=== PATIENT | female | born 1945 | race Caucasian/White ===

== ENCOUNTER → 2020-03-07 | Outpatient (CLI) | payer MEDICARE, OTHER ==
[2020-03-08 15:11] LABS: Microalbumin, Urine Quant. <5.000 mg/L (0.000-20.000); Protein, Urine Quantitative <5.0 mg/dL (0.0-11.9)
== END | disposition home or self-care (01) ==
LOC: LAB EV 11:55 → LAB SHORT 11:55
PROVIDERS: Physician Assistant
DX: N18.3 Chronic kidney disease, stage 3 (moderate) (principal); D63.1 Anemia in chronic kidney disease; R73.09 Other abnormal glucose; N25.81 Secondary hyperparathyroidism of renal origin; E55.9 Vitamin D deficiency, unspecified; E78.00 Pure hypercholesterolemia, unspecified; D51.8 Other vitamin B12 deficiency anemias; D52.8 Other folate deficiency anemias; D50.9 Iron deficiency anemia, unspecified; R76.9 Abnormal immunological finding in serum, unspecified; R94.5 Abnormal results of liver function studies; R94.6 Abnormal results of thyroid function studies
CPT/HCPCS: 81050; 82043; 82570; 84156

== ENCOUNTER → 2020-07-24 | Outpatient (CLI) | payer MEDICARE, OTHER ==
[2020-07-25 16:55] LABS: Creatinine Urine 38.2 mg/dL (27.00-270.00); Protein, Urine Quantitative 5.7 mg/dL (0.0-11.9)
[2020-07-25 16:57] LABS: Microalbumin, Urine Quant. 12.5 mg/L (0.000-20.000)
== END | disposition home or self-care (01) ==
LOC: LAB 12:00 → LAB SHORT 12:00 → LAB FUT 07-21 13:55
PROVIDERS: Internal Medicine Nephrology
DX: N18.30 Chronic kidney disease, stage 3 unspecified (principal); D63.1 Anemia in chronic kidney disease; N25.81 Secondary hyperparathyroidism of renal origin; E55.9 Vitamin D deficiency, unspecified; E78.00 Pure hypercholesterolemia, unspecified; R76.9 Abnormal immunological finding in serum, unspecified; R94.5 Abnormal results of liver function studies; R94.6 Abnormal results of thyroid function studies
CPT/HCPCS: 81050; 82043; 82570; 84156

== ENCOUNTER 2021-02-12 11:50 | Day surgery (SDC) | payer MEDICARE, OTHER, SELFPAY ==
[~2021-02-12] VITALS: Ht 154.9 cm; Wt 90.9 kg
[~2021-02-12 11:50] MED LIST: AMLO5 PO; Acetaminophen650 M1 PO; Aspir 8181 MG PO; BUME2 PO; DOCU100 PO; FERROUS SULFAT325 M3 PO; HYDRA50 PO; METOPROLOL SUCC25 MG PO; POTCHL20ER PO; PROLIA60 MG/1 ML SC; Prozac40 MG PO; TRAZ50 PO
== END 2021-02-12 14:15 | disposition home or self-care (01) ==
LOC: ORSCSDS 11:50
PROVIDERS: Internal Medicine Gastroenterology
PROC: 0DB68ZX Excision of Stomach, Via Natural or Artificial Opening Endoscopic, Diagnostic (ICD-10-PCS; principal; 2021-02-12 12:00)
PROC: 0DB98ZX Excision of Duodenum, Via Natural or Artificial Opening Endoscopic, Diagnostic (ICD-10-PCS; principal; 2021-02-12 12:00)
PROC: 0DJD8ZZ Inspection of Lower Intestinal Tract, Via Natural or Artificial Opening Endoscopic (ICD-10-PCS; principal; 2021-02-12 12:00)
DX: D50.9 Iron deficiency anemia, unspecified (principal); K29.80 Duodenitis without bleeding; K20.90 Esophagitis, unspecified without bleeding; K57.30 Diverticulosis of large intestine without perforation or abscess without bleeding; K64.4 Residual hemorrhoidal skin tags; K64.8 Other hemorrhoids; R19.5 Other fecal abnormalities; Z86.010 Personal history of colon polyps; I25.10 Atherosclerotic heart disease of native coronary artery without angina pectoris; I12.9 Hypertensive chronic kidney disease with stage 1 through stage 4 chronic kidney disease, or unspecified chronic kidney disease; N18.30 Chronic kidney disease, stage 3 unspecified; Z87.891 Personal history of nicotine dependence; Z79.82 Long term (current) use of aspirin; Z79.899 Other long term (current) drug therapy
CPT/HCPCS: 88305; 88341; 88342; J2704; J7120

== ENCOUNTER 2021-12-11 09:48 | Day surgery (SDC) | payer MEDICARE, OTHER ==
[~2021-12-11] VITALS: Ht 152.4 cm; Wt 96.8 kg
== END 2021-12-11 13:15 | disposition home or self-care (01) ==
LOC: ORSCSDS 09:48
PROVIDERS: Student in an Organized Health Care Education/Training Program
PROC: 0DB78ZX Excision of Stomach, Pylorus, Via Natural or Artificial Opening Endoscopic, Diagnostic (ICD-10-PCS; principal; 2021-12-11 11:30)
DX: K21.9 Gastro-esophageal reflux disease without esophagitis (principal); K31.9 Disease of stomach and duodenum, unspecified; K44.9 Diaphragmatic hernia without obstruction or gangrene; I25.10 Atherosclerotic heart disease of native coronary artery without angina pectoris; Z87.891 Personal history of nicotine dependence; E66.01 Morbid (severe) obesity due to excess calories; Z68.41 Body mass index [BMI] 40.0-44.9, adult; I25.2 Old myocardial infarction; Z85.3 Personal history of malignant neoplasm of breast; Z79.899 Other long term (current) drug therapy; Z79.82 Long term (current) use of aspirin; I12.9 Hypertensive chronic kidney disease with stage 1 through stage 4 chronic kidney disease, or unspecified chronic kidney disease
CPT/HCPCS: 88305; 88342; J2405; J2704; J7120

== ENCOUNTER → 2022-10-24 | Outpatient (CLI) | payer MEDICARE ==
[2022-10-25 09:34] LABS: Candida species (DNA Probe) Negative (NEGATIVE); G. vaginalis (DNA Probe) Positive (NEGATIVE); T. vaginalis (DNA Probe) Negative (NEGATIVE)
== END | disposition home or self-care (01) ==
LOC: LAB SHORT 10:50
PROVIDERS: Physician Assistant
DX: N89.8 Other specified noninflammatory disorders of vagina (principal)
CPT/HCPCS: 87480; 87510; 87660

== ENCOUNTER 2023-08-01 06:21 | Day surgery (SDC) | payer OTHER ==
[2023-08-01] VITALS (8 sets, daily range): BP systolic 129–181; BP diastolic 61–97
[~2023-08-01] VITALS: Ht 152.4 cm; Wt 72.3 kg
[2023-08-01] MEDS ORDERED: ALPR.25 PO (06:59)
[2023-08-01] MEDS ORDERED: REXULTI0.5 MG PO (07:00)
[2023-08-01] MEDS ORDERED: CITALOPRAM HBR10 MG PO (07:01)
[2023-08-01] MEDS ORDERED: FAMO20 PO (07:03)
[2023-08-01] MEDS ORDERED: LOSA50 PO (07:04)
[2023-08-01] MEDS ORDERED: TOPI100 (07:06)
[2023-08-01] MEDS ORDERED: SENNA LAXATIVE8.6 MG PO (07:06)
[2023-08-01] MEDS ORDERED: TOPI100 PO (07:08)
[2023-08-01] MEDS ORDERED: DOCU100 PO (07:16)
--- NOTE | 2023-08-01 12:24 | NUR ---
10CC AIR REMOVED FROM R WRIST TR BAND. -BLEEDING OR SWELLING.
--- NOTE | 2023-08-01 12:55 | NUR ---
R WRIST TR BAND REMOVED AND CLOTH DOT DRSG PLACED. R WRIST SPLINT REAPPLIED. IV REMOVED. PT AND DAUGHTER VERBALIZED UNDERSTANDING OF WRITTEN AND VERBAL D/C INST. PT TAKEN OUT OF THE HRT CENTER VIA W/C.
== END 2023-08-01 13:00 | disposition home or self-care (01) ==
LOC: MHTC 06:21
DX: I35.0 Nonrheumatic aortic (valve) stenosis (principal); I25.118 Atherosclerotic heart disease of native coronary artery with other forms of angina pectoris; I12.9 Hypertensive chronic kidney disease with stage 1 through stage 4 chronic kidney disease, or unspecified chronic kidney disease; N18.30 Chronic kidney disease, stage 3 unspecified; F32.9 Major depressive disorder, single episode, unspecified; Z79.899 Other long term (current) drug therapy; Z88.5 Allergy status to narcotic agent; Z88.8 Allergy status to other drugs, medicaments and biological substances
CPT/HCPCS: 76937; 93458; 99152; 99153; A9270; C1769; C1887; C1894; J1644; J2250; J3010; J7030; J7040; J7050; Q9967

== ENCOUNTER → 2023-08-10 | Outpatient (CLI) | payer OTHER ==
[~2023-08-10] MED LIST changes: +ALPR.25 PO; +CITALOPRAM HBR10 MG PO; +FAMO20 PO; +LOSA50 PO; +REXULTI0.5 MG PO; +SENNA LAXATIVE8.6 MG PO; +TOPI100; +TOPI100 PO
[2023-08-11 15:51] LABS: Sodium, Urine 33 mmol/L (20-110)
[2023-08-11 15:57] LABS: Protein, Urine Quantitative <5.0 mg/dL (0.0-11.9)
== END ==
LOC: LAB SHORT 05:59 → LAB 05:59
PROVIDERS: Internal Medicine Nephrology
DX: N18.30 Chronic kidney disease, stage 3 unspecified (principal); D63.1 Anemia in chronic kidney disease; N25.81 Secondary hyperparathyroidism of renal origin; E55.9 Vitamin D deficiency, unspecified; E78.00 Pure hypercholesterolemia, unspecified; R76.9 Abnormal immunological finding in serum, unspecified; R94.5 Abnormal results of liver function studies; R94.6 Abnormal results of thyroid function studies
CPT/HCPCS: 82043; 84156; 84300

== ENCOUNTER → 2024-08-05 | Outpatient (CLI) | payer OTHER ==
[~2024-08-05] MED LIST changes: +ONDA4ODT MM
[2024-08-05 13:13] LABS: Bun/Creatinine Ratio 29.3 (12.0-20.0); Calcium, Blood 7.2 mg/dL (8.5-10.1); Creatinine, Blood 2.08 mg/dL (0.40-1.00); Magnesium, Blood 3.1 mg/dL (1.6-2.4); Potassium, Blood 4.5 mmol/L (3.5-5.5)
== END | disposition home or self-care (01) ==
LOC: LAB 12:51 → LAB SHORT 12:51
PROVIDERS: Chiropractor
DX: N18.4 Chronic kidney disease, stage 4 (severe) (principal)
CPT/HCPCS: 80048; 83735

== ENCOUNTER → 2024-08-06 | Outpatient (CLI) | payer OTHER ==
[2024-08-06 14:01] LABS: Bun/Creatinine Ratio 29.5 (12.0-20.0); Calcium, Blood 7.5 mg/dL (8.5-10.1); Creatinine, Blood 2.24 mg/dL (0.40-1.00); Magnesium, Blood 2.8 mg/dL (1.6-2.4)
== END | disposition home or self-care (01) ==
LOC: LAB SHORT 13:52 → LAB 13:52
PROVIDERS: Chiropractor
DX: N18.4 Chronic kidney disease, stage 4 (severe) (principal); E83.41 Hypermagnesemia
CPT/HCPCS: 80048; 83735

== ENCOUNTER → 2024-09-02 | Outpatient (CLI) | payer OTHER ==
[2024-09-02 13:38] LABS: Protein, Urine Quantitative 5.3 mg/dL (0.0-11.9)
[2024-09-02 14:00] LABS: Microalbumin, Urine Quant. 6.02 mg/L (0.000-20.000)
== END | disposition home or self-care (01) ==
LOC: LAB SHORT 11:00 → LAB 11:00
PROVIDERS: Internal Medicine Nephrology
DX: N18.30 Chronic kidney disease, stage 3 unspecified (principal); D75.1 Secondary polycythemia; N25.81 Secondary hyperparathyroidism of renal origin; E55.9 Vitamin D deficiency, unspecified; E27.0 Other adrenocortical overactivity; R76.9 Abnormal immunological finding in serum, unspecified; R94.5 Abnormal results of liver function studies; R94.6 Abnormal results of thyroid function studies
CPT/HCPCS: 81050; 82043; 82570; 84156

== ENCOUNTER 2024-09-17 09:21 | Emergency (ER) | payer OTHER ==
[~2024-09-17] VITALS: Ht 154.9 cm; Wt 83.0 kg
[2024-09-17] MEDS ORDERED: Lactated Ringer's 1,000 ML IV SCH (10:35)
[2024-09-17 10:52] LABS: BASOPHILS ABSOLUTE AUTO 0.05 K/mm3 (0.00-0.23); BASOPHILS PERCENT AUTO 0 % (0-2); EOSINOPHILS ABSOLUTE AUTO 0.08 K/mm3 (0.00-0.68); EOSINOPHILS PERCENT AUTO 1 % (0-6); Hematocrit 31.1 % (33.0-51.0); Hemoglobin 10.5 g/dL (11.5-16.0); IMMATURE GRAN ABSOLUTE AUTO 0.07 K/mm3 (0.00-0.10); IMMATURE GRAN PERCENT AUTO 0 % (0-1); LYMPHOCYTES PERCENT AUTO 7 % (21-46); MONOCYTES PERCENT AUTO 5 % (4-13); Mean Corpuscular HGB 30.2 pg (26.0-34.0); Mean Corpuscular HGB Conc 33.8 g/dL (31.5-36.5); Mean Corpuscular Volume 89 fL (80-100); Mean Platelet Volume 9.7 fL (9.1-12.4); NEUTROPHILS ABSOLUTE AUTO 14.45 K/mm3 (1.96-9.15); NEUTROPHILS PERCENT AUTO 86 % (41-73); Platelet Count 198 K/mm3 (150-400); RDW Standard Deviation 39.2 fL (35.1-46.3); Red Blood Cell Count 3.48 M/mm3 (3.80-5.20); White Blood Cell Count 16.75 K/mm3 (4.00-11.30)
[2024-09-17 12:11] LABS: Albumin, Blood 3.6 g/dL (3.4-5.0); Albumin/Globulin Ratio 0.9 (0.8-1.8); Bilirubin, Total 0.5 mg/dL (0.1-1.0); Calcium, Blood 8.2 mg/dL (8.5-10.1); Creatinine, Blood 3.36 mg/dL (0.40-1.00); Globulin, Blood 3.9 g/dL (2.2-4.0); Potassium, Blood 2.5 mmol/L (3.5-5.5); Total Protein, Blood 7.5 g/dL (6.4-8.2)
[2024-09-17] MEDS ORDERED: Acetaminophen 500 MG Tab PO ONE (12:20)
[2024-09-17 12:22] LABS: Bun/Creatinine Ratio 53.9 (12.0-20.0)
[2024-09-17 12:31] LABS: Source, Urine Clean Catch
[2024-09-17 12:31] LABS: Influenza A, PCR NEGATIVE (NEGATIVE); Influenza B, PCR NEGATIVE (NEGATIVE); Resp Syncytial Virus, PCR NEGATIVE (NEGATIVE); SARS-Cov-2 (COVID-19) PCR, MMC NEGATIVE (NEGATIVE)
[2024-09-17 12:55] LABS: Appearance, Urine Clear (Clear); Bilirubin, Urine Neg (Neg); Blood, Urine Neg (Neg); Color, Urine Yellow (P-Yellow); Glucose Qualitative, Urine Neg (Neg); Ketones, Urine Neg (Neg); Leukocyte Esterase, Urine Neg (Neg); Nitrite, Urine Neg (Neg); Protein, Urine Neg (Neg); Urobilinogen, Urine NORM (Normal)
[2024-09-17] MEDS ORDERED: ARANESP40 MCG/0.1 SC (14:40)
[2024-09-17] MEDS ORDERED: CALC.25 PO (14:40)
[2024-09-17] MEDS ORDERED: METO5 PO (14:40)
[2024-09-17] MEDS ORDERED: Amlodipine Bes2.5 MG (14:40)
[2024-09-17] MEDS ORDERED: FAMO20 (14:40)
[2024-09-17] MEDS ORDERED: ACET500 (14:41)
[2024-09-17] MEDS ORDERED: PRAM.125 PO (14:41)
[2024-09-17] MEDS ORDERED: Seroquel Xr50 MG PO (14:41)
[2024-09-17] MEDS ORDERED: OXYC5 PO (14:41)
[2024-09-17] MEDS ORDERED: METO50ER PO (14:42)
[2024-09-17] MEDS ORDERED: NS 1,000 ML IV SCH (14:55)
[2024-09-17] MEDS ORDERED: Potassium Chloride 20 MEQ/15 ML UDC PO ONE (15:20)
[2024-09-17] MEDS ORDERED: Potassium Chl 20MEQ/Water100ML 100 ML IV ONE (15:20)
[2024-09-17] MEDS ORDERED: Potassium Chloride 20 MEQ in NS 90 ML IV ONE (15:25)
[2024-09-17 18:00] VITALS: BP 116/54
== END 2024-09-17 18:16 | disposition home or self-care (01) ==
LOC: ER 09:21
PROVIDERS: Student in an Organized Health Care Education/Training Program
DX: K52.9 Noninfective gastroenteritis and colitis, unspecified (principal); E87.1 Hypo-osmolality and hyponatremia; E87.6 Hypokalemia; N18.4 Chronic kidney disease, stage 4 (severe); Z88.5 Allergy status to narcotic agent; Z79.899 Other long term (current) drug therapy; Z87.891 Personal history of nicotine dependence
CPT/HCPCS: 0241U; 74176; 80053; 81003; 83605; 83690; 85025; 93005; 93010; 96361; 96365; 96366; 99284-25; A9270; J3480; J7030; J7120

== ENCOUNTER 2024-10-01 07:20 | Day surgery (SDC) | payer OTHER ==
[~2024-10-01] VITALS: Ht 154.9 cm; Wt 82.1 kg
[~2024-10-01 07:20] MED LIST changes: +ACET500 PO; +ALPR.25; +ARANESP40 MCG/0.1 SC; +Amlodipine Bes2.5 MG; +CALC.25 PO; +FAMO20; +Flonase 0.05% N16 GM; +HYDRA25 PO; -HYDRA50 PO; +MELATONIN5 M1 PO; +METO5 PO; +METO50ER PO; +OXYC5 PO; +POTA20LUD PO; +PRAMIPEXOLE DI0.5 M1 PO; +Seroquel Xr50 MG PO; -TRAZ50 PO
[2024-10-01] MEDS ORDERED: Heparin Sodium 1000 Units/ML 10ML MDV ONE (07:21)
[2024-10-01] MEDS ORDERED: NS 250 ML IV ONE (07:22)
[2024-10-01 07:41] VITALS: BP 112/61
[2024-10-01] MEDS ORDERED: Midazolam HCl 1MG / ML 2ML Vial ONE (07:43)
[2024-10-01] MEDS ORDERED: FentaNYL Citrate 50 MCG/ML 2 ML Injection ONE (07:44)
[2024-10-01] MEDS ORDERED: NS 1,000 ML IV ONE (07:44)
[2024-10-01] MEDS ORDERED: Heparin Sodium 10,000 Units/ML 1ML MDV ONE (08:20)
[2024-10-01 08:36] VITALS: BP 103/65
--- NOTE | 2024-10-01 08:41 | NUR ---
PROCEDURE COMPLETED, HEP LOCKED WITH 20,000 UNITS ARTERIAL PORT, 21,000 UNITS VENOUS PORT, TOLERATED WELL PROCEDURE, REPORT GIVEN AND VSS, D/C PENDING, FAMILY AT BEDSIDE, NO ACUTE CONCERNS OTHERWISE.
[2024-10-01 08:45] VITALS: BP 104/56
--- NOTE | 2024-10-01 08:58 | NUR ---
procedure site soft and non-tender per pt. no bleeding/hematoma noted.
[2024-10-01 09:00] VITALS: BP 106/67
--- NOTE | 2024-10-01 09:15 | NUR ---
pt and family given dc instructions and verbalized understanding. iv out. site soft and non-tender epr pt. no bleeding/hematoma noted. pt chnaged and taken to [facility] via [facility]. family to take pt to dr daniel's office for follow-up.
[2024-10-01] MEDS ORDERED: METO5 PO ×2 (19:30)
[2024-10-01] MEDS ORDERED: ELIQUIS5 M2 PO ×2 (19:33)
== END 2024-10-01 09:44 | disposition home or self-care (01) ==
LOC: MHTC 07:20
DX: I12.0 Hypertensive chronic kidney disease with stage 5 chronic kidney disease or end stage renal disease (principal); N18.6 End stage renal disease; D63.1 Anemia in chronic kidney disease; E87.1 Hypo-osmolality and hyponatremia; Z87.891 Personal history of nicotine dependence; Z88.1 Allergy status to other antibiotic agents; Z88.2 Allergy status to sulfonamides; Z88.5 Allergy status to narcotic agent; Z79.82 Long term (current) use of aspirin; Z79.899 Other long term (current) drug therapy
CPT/HCPCS: 36415; 36558; 76937; 77001; 80069; 86803; 87340; 99152; C1750; C1769; C1894; J1644; J2250; J3010; J7030; J7050

== ENCOUNTER 2024-10-01 14:21 | Inpatient (IN) | payer OTHER ==
[~2024-10-01] VITALS: Ht 154.9 cm; Wt 80.3 kg
[2024-10-01 14:51] LABS: BASOPHILS ABSOLUTE AUTO 0.06 K/mm3 (0.00-0.23); BASOPHILS PERCENT AUTO 1 % (0-2); EOSINOPHILS ABSOLUTE AUTO 0.24 K/mm3 (0.00-0.68); EOSINOPHILS PERCENT AUTO 3 % (0-6); Hematocrit 28.4 % (33.0-51.0); Hemoglobin 9.6 g/dL (11.5-16.0); IMMATURE GRAN ABSOLUTE AUTO 0.03 K/mm3 (0.00-0.10); IMMATURE GRAN PERCENT AUTO 0 % (0-1); LYMPHOCYTES ABSOLUTE AUTO 1.04 K/mm3 (0.84-5.20); LYMPHOCYTES PERCENT AUTO 12 % (21-46); MONOCYTES ABSOLUTE AUTO 0.72 K/mm3 (0.16-1.47); MONOCYTES PERCENT AUTO 8 % (4-13); Mean Corpuscular HGB 30.9 pg (26.0-34.0); Mean Corpuscular HGB Conc 33.8 g/dL (31.5-36.5); Mean Corpuscular Volume 91 fL (80-100); Mean Platelet Volume 9.9 fL (9.1-12.4); NEUTROPHILS ABSOLUTE AUTO 6.95 K/mm3 (1.96-9.15); NEUTROPHILS PERCENT AUTO 77 % (41-73); Platelet Count 208 K/mm3 (150-400); RDW Coefficient Variation 11.8 % (11.7-14.2); RDW Standard Deviation 39.1 fL (35.1-46.3); Red Blood Cell Count 3.11 M/mm3 (3.80-5.20); White Blood Cell Count 9.04 K/mm3 (4.00-11.30)
[2024-10-01 16:09] LABS: International Normalized Ratio 1.05; Prothrombin Time Results 11.2 Sec (9.7-11.5)
[2024-10-01 16:25] LABS: Albumin, Blood 3.3 g/dL (3.4-5.0); Albumin/Globulin Ratio 0.9 (0.8-1.8); Bilirubin, Total 0.4 mg/dL (0.1-1.0); Bun/Creatinine Ratio 22.8 (12.0-20.0); Calcium, Blood 8.8 mg/dL (8.5-10.1); Creatinine, Blood 7.32 mg/dL (0.40-1.00); Globulin, Blood 3.5 g/dL (2.2-4.0); Potassium, Blood 4.4 mmol/L (3.5-5.5); Total Protein, Blood 6.8 g/dL (6.4-8.2)
[2024-10-01] MEDS ORDERED: Acetaminophen 325 MG TABLET PO ONE (16:25)
[2024-10-01] MEDS ORDERED: HYDROcodone 5-APAP 325 TAB PO PRN (16:45)
[2024-10-01] MEDS ORDERED: FLU VACC TS2024-25(6MOS UP)/PF 45 MCG/0.5 ML SYRINGE IM SCH (16:45)
[2024-10-01] MEDS ORDERED: Ondansetron HCl 2 MG / ML 2ML Vial IV PRN (16:45)
[2024-10-01] MEDS ORDERED: FentaNYL Citrate 50 MCG/ML 2 ML Injection IV PRN (16:45)
[2024-10-01] MEDS ORDERED: Pramipexole DI-HCL 0.25 MG Tab PO PRN (16:50)
[2024-10-01] MEDS ORDERED: Acetaminophen 325 MG TABLET PO PRN (16:50)
[2024-10-01] MEDS ORDERED: Melatonin 5 MG Tablet PO PRN (16:50)
[2024-10-01] MEDS ORDERED: Docusate Sodium 100 MG Cap PO PRN (16:55)
[2024-10-01] MEDS ORDERED: METO5 PO ×2 (19:30)
[2024-10-01] MEDS ORDERED: ELIQUIS5 M2 PO ×2 (19:33)
[2024-10-01 20:12] VITALS: BP 108/63
[2024-10-01] MEDS ORDERED: Fluticasone 0.05% Nasal Spray SCH (21:00)
[2024-10-01] MEDS ORDERED: QUEtiapine Fumarate 50 MG TAB PO SCH (21:00)
[2024-10-01] MEDS ORDERED: Calcitriol 0.25 MCG Cap PO SCH (21:00)
[2024-10-01] MEDS ORDERED: Darbepoetin Alfa In Albumn Sol 40 MCG/0.4 ML SC SCH (22:00)
[2024-10-02] VITALS (15 sets, daily range): BP systolic 78–148; BP diastolic 47–69
[2024-10-02 06:42] LABS: BASOPHILS ABSOLUTE AUTO 0.04 K/mm3 (0.00-0.23); BASOPHILS PERCENT AUTO 1 % (0-2); EOSINOPHILS ABSOLUTE AUTO 0.22 K/mm3 (0.00-0.68); EOSINOPHILS PERCENT AUTO 4 % (0-6); Hematocrit 25.9 % (33.0-51.0); Hemoglobin 8.6 g/dL (11.5-16.0); IMMATURE GRAN ABSOLUTE AUTO 0.01 K/mm3 (0.00-0.10); IMMATURE GRAN PERCENT AUTO 0 % (0-1); LYMPHOCYTES ABSOLUTE AUTO 0.93 K/mm3 (0.84-5.20); LYMPHOCYTES PERCENT AUTO 17 % (21-46); MONOCYTES ABSOLUTE AUTO 0.58 K/mm3 (0.16-1.47); MONOCYTES PERCENT AUTO 11 % (4-13); Mean Corpuscular HGB 30.4 pg (26.0-34.0); Mean Corpuscular HGB Conc 33.2 g/dL (31.5-36.5); Mean Corpuscular Volume 92 fL (80-100); Mean Platelet Volume 10.1 fL (9.1-12.4); NEUTROPHILS ABSOLUTE AUTO 3.69 K/mm3 (1.96-9.15); NEUTROPHILS PERCENT AUTO 68 % (41-73); Platelet Count 179 K/mm3 (150-400); RDW Coefficient Variation 11.6 % (11.7-14.2); RDW Standard Deviation 39.2 fL (35.1-46.3); Red Blood Cell Count 2.83 M/mm3 (3.80-5.20); White Blood Cell Count 5.47 K/mm3 (4.00-11.30)
--- NOTE | 2024-10-02 07:20 | NUR ---
SHIFT SUMMARY; PATIENT WAS ABLE TO SLEEP IN LONG INTERVALS. MINIMAL LEAKING FROM PERMA CATH.
[2024-10-02 07:42] LABS: Anion Gap 11 mmol/L (3-11); Blood Urea Nitrogen 161 mg/dL (8-24); Bun/Creatinine Ratio 23.9 (12.0-20.0); CO2, Blood 34 mmol/L (21-32); Calcium, Blood 8.3 mg/dL (8.5-10.1); Chloride, Blood 87 mmol/L (98-108); Creatinine, Blood 6.75 mg/dL (0.40-1.00); Glomerular Filtration Rate 6 (60-); Glucose, Blood 110 mg/dL (70-99); Magnesium, Blood 5.1 mg/dL (1.6-2.4); Phosphorus, Blood 7.9 mg/dL (2.5-4.9); Sodium, Blood 128 mmol/L (136-145)
[2024-10-02] MEDS ORDERED: Sevelamer Carbonate 800 MG Tab PO SCH (08:30)
[2024-10-02] MEDS ORDERED: Vitamin B Cmplx/Vit C/Folic Ac 1 Tab PO SCH (09:00)
[2024-10-02] MEDS ORDERED: Metoprolol Succinate 50 MG TABCR PO SCH (09:00)
[2024-10-02] MEDS ORDERED: Bumetanide 1 MG Tab PO SCH (09:00)
[2024-10-02] MEDS ORDERED: Famotidine 20 MG Tab PO SCH (09:00)
[2024-10-02] MEDS ORDERED: Albumin (Human) 25gm/100ml 100 ML IV PRN (09:35)
--- NOTE | 2024-10-02 13:08 | NUR ---
DIALYSIS NURSE TO PT RM 311 POST HEMODIALYSIS TREATMENT DUE TO LEAKING AROUND EXIT SITE AND DRAINAGE FROM DIALYSIS CATHETHER. PT HAD X2 DRESSING CHANGES WHILE AT DIALYSIS ONE PRE PROCEDURE AND ONE POST, DUE TO DRAINAGE ON BANDAGE. APPEARS TO BE LEAKING FROM THE TOP INSERTION SITE AROUND THE SUTURE. APPLIED STERI STIP ALONG WITH A CLOTH DOT AND JOSEMANUEL DRESSING, REINFORCED WITH TAPE TO APPLY ADDITIONAL PRESSURE. STITCH ABOVE ACCESS SITE IS WHERE LEAKAGE APPEARS TO BE COMING FROM CAUSING BLEED THOUGH. LEFT CLOTING INTACT AROUND SUTURE TO HELP ASSIST WITH MINIMIZING BLEEDING. POSSIBLE THAT AN ADDITIONAL SUTURE WILL BE NEEDED. PLEASE CALL DIALYSIS TEAM BACK IF YOU NEED ANY ADDITIONAL ASSISTANCE.
--- NOTE | 2024-10-02 14:06 | NUR ---
DIALYSIS- PT WENT FOR HER FIRST DIALYSIS Tx TODAY, SHE STATES "THIS IS THE BEST I'VE FELT IN MONTHS!" UPON REVIEW, THE PT HAS HAD HER HEPATITIS PANEL DRAWN ON THE OF THIS MONTH, IT APPEARS THAT THE RESULTS ARE IN THE SYSTEM. CALLED [facility] FROM CARE MANAGEMENT SHE IS AWARE OF THE NEED FOR A REFERRAL TO [facility] FOR CHAIR TIME.
--- NOTE | 2024-10-02 18:49 | NUR ---
SHIFT SUMMARY- PT HAD SOME LEG CRAMPS AFTER DIALYSIS THAT WERE BRINGING HER TO TEARS. ASSISTED HER TO STRETCH HER CALVES AND REPLACED HER SCD'S. PT STATES SINCE THEN IT HAS BEEN MUCH BETTER. PLAN IS FOR DIALYSIS TOMORROW, PT HAS A PUREWICK IN PLACE. PT HAD A LOT OF BLEEDING FROM HER FIRST PERMACATH SITE. WIENER PACKER CHANGED THE DRESSING THREE TIMES. THE FINAL DRESSING DOES NOT APPEAR TO BE BLEEDING THROUGH AT THIS TIME. PT IN BED, CALL LIGHT IN REACH NO S&S OF DISTRESS NOTED AT THIS TIME. WILL PASS ON IN BEDSIDE REPORT
[2024-10-03] VITALS (16 sets, daily range): BP systolic 96–144; BP diastolic 41–71
[2024-10-03 05:31] LABS: Hematocrit 27.3 % (33.0-51.0); Hemoglobin 8.9 g/dL (11.5-16.0)
[2024-10-03 05:52] LABS: Magnesium, Blood 3.6 mg/dL (1.6-2.4)
[2024-10-03 06:06] LABS: Albumin, Blood 3.1 g/dL (3.4-5.0); Anion Gap 9 mmol/L (3-11); Blood Urea Nitrogen 71 mg/dL (8-24); Bun/Creatinine Ratio 17.8 (12.0-20.0); CO2, Blood 32 mmol/L (21-32); Calcium, Blood 8.1 mg/dL (8.5-10.1); Chloride, Blood 95 mmol/L (98-108); Glomerular Filtration Rate 11 (60-); Glucose, Blood 106 mg/dL (70-99); Potassium, Blood 3.6 mmol/L (3.5-5.5); Sodium, Blood 132 mmol/L (136-145)
[2024-10-03 06:07] LABS: Phosphorus, Blood 4.5 mg/dL (2.5-4.9)
[2024-10-03] MEDS ORDERED: Albumin (Human) 25gm/100ml 100 ML IV SCH (14:25)
--- NOTE | 2024-10-03 17:20 | NUR ---
SHIFT SUMMARY- PT ALERT AND ORIENTED, 1PA TO THE BSC. PT HAD DIALYSIS THIS EVENING, UPON RETURNING SHE REQUESTED SOME ICE CHIPS AND A WARM BLANKET. SHE IS ALL SMILES TODAY AND SAYS SHE FEELS A LT BETTER. PT HAS BEEN EATING MEALS WELL. HER DAUGHTER BROUGHT HER A BAG FILLED WITH DIFFERENT FLAVORED PUDDINGS. PT TAKES HER MEDS IN PUDDING WITH NO DIFFICULTY. DISCHARGE PENDING DIALYSIS CHAIR TIME IN THE OUT PT SETTING. PT HAS RECIEVED A SINGLE DOSE OF PAIN MEDS TODAY. PT IN BED, CALL LIGHT IN REACH NO S&S OF DISTRESS NOTED, DAUGHTER AT THE BEDSIDE.
[2024-10-03] MEDS ORDERED: Lactulose 20 GM/30 ML UDC PO PRN (21:00)
[2024-10-04] VITALS (15 sets, daily range): BP systolic 91–129; BP diastolic 51–77
[2024-10-04 10:20] LABS: Hemoglobin 10.2 g/dL (11.5-16.0)
[2024-10-04 11:26] LABS: Magnesium, Blood 2.1 mg/dL (1.6-2.4)
[2024-10-04 11:28] LABS: Albumin, Blood 3.6 g/dL (3.4-5.0); Anion Gap 7 mmol/L (3-11); Blood Urea Nitrogen 11 mg/dL (8-24); Bun/Creatinine Ratio 9.2 (12.0-20.0); CO2, Blood 35 mmol/L (21-32); Calcium, Blood 8.8 mg/dL (8.5-10.1); Chloride, Blood 96 mmol/L (98-108); Creatinine, Blood 1.19 mg/dL (0.40-1.00); Glomerular Filtration Rate 47 (60-); Glucose, Blood 101 mg/dL (70-99); Phosphorus, Blood 1.1 mg/dL (2.5-4.9); Potassium, Blood 3.7 mmol/L (3.5-5.5); Sodium, Blood 134 mmol/L (136-145)
[2024-10-04] MEDS ORDERED: Docusate Sodium/Senna 1 Tab PO PRN (15:15)
--- NOTE | 2024-10-04 18:33 | NUR ---
SHIFT SUMMARY PATIENT ALERT AND INTERACTIVE BUT FORGETFUL. PATIENT HAD DIALYSIS AT START OF SHIFT. PERMACATH SITE TENDER AND SORE. PATIENT MEDICATED PER SEP FOR PAIN. PATIENT CONTINUES TO HAVE HARD FORMED STOOLS. PATIENT VOMITTED AFTER LACTULOSE. PATIENT TO START SENNA. EDUCATED DAUGHTER AND PATIENT RELATED TO BOWEL REGIMIN AT HOME. PATIENT HOPEFUL TO GO HOME TOMORROW IF DIALYSIS CHAIR TIME CAN BE ESTABLISHED.
[2024-10-04] MEDS ORDERED: TRAZ50 PO ×2 (19:30)
[2024-10-05 03:34] VITALS: BP 105/88
[2024-10-05 05:59] LABS: Hematocrit 29.9 % (33.0-51.0); Hemoglobin 9.6 g/dL (11.5-16.0)
--- NOTE | 2024-10-05 06:05 | NUR ---
SHIFT SUMMARY PATIENT IS ALERT AND ORIENTED. PATIENT HAS HAD NO ACUTE EVENTS THIS SHIFT. VITAL SIGNS REVIEWED. PATIENT HAS NO COMPLAINTS OF PAIN, NAUSEA, SOB OR VOMITTING THIS SHIFT. PATIENT HAS BEEN SLEEPING MOST OF SHIFT WITH NO REQUESTS. BED IN LOCKED AND LOWEST POSITION. CALL LIGHT IN PLACE.
[2024-10-05 06:19] LABS: Albumin, Blood 3.4 g/dL (3.4-5.0); Anion Gap 6 mmol/L (3-11); Blood Urea Nitrogen 26 mg/dL (8-24); Bun/Creatinine Ratio 7.1 (12.0-20.0); CO2, Blood 35 mmol/L (21-32); Calcium, Blood 8.6 mg/dL (8.5-10.1); Chloride, Blood 96 mmol/L (98-108); Creatinine, Blood 3.66 mg/dL (0.40-1.00); Glomerular Filtration Rate 12 (60-); Glucose, Blood 113 mg/dL (70-99); Magnesium, Blood 2.8 mg/dL (1.6-2.4); Phosphorus, Blood 2.9 mg/dL (2.5-4.9); Potassium, Blood 4.2 mmol/L (3.5-5.5); Sodium, Blood 133 mmol/L (136-145)
[2024-10-05 07:24] VITALS: BP 111/74
[2024-10-05] MEDS ORDERED: BUME2 PO ×2 (13:55)
[2024-10-05] MEDS ORDERED: B-COMPLEX WITH1 EAC2 PO ×2 (13:57)
[2024-10-05] MEDS ORDERED: METO50ER PO (13:59)
[2024-10-05] MEDS ORDERED: FAMO10 PO ×2 (14:00)
[2024-10-05] MEDS ORDERED: SEVEC800 PO ×2 (14:01)
--- NOTE | 2024-10-05 15:37 | NUR ---
DISCHARGE NOTE PT WAS ALERT AND ORIENTED X 4. HER DAUGHTER WAS AT BEDSIDE. VSS, SPO2 MAINTAINED >95% VIA RA. SHE DENIED FEELINGS OF CHEST PAIN/PRESSURE, LIGHTHEADEDNESS/DIZZINESS OR SOB. NO COUGH NOTED. SHE DENIED FEELINGS OF NAUSEA/VOMITTING. THIS RN DISCUSSED DISCHARGE INSTRUCTIONS W/ THE PT AND HER DAUGHTER INCLUDING FOLLOW UP APPOINTMENTS, HOME MEDICATIONS, DIALYSIS APPOINTMENTS AND RENAL FRIENDLY DIET. PT LEFT MEDICAL FLOOR AT APPROX. [id number] VIA WHEELCHAIR.
[2024-10-07 21:10] LABS: HBV CORE ANTIBODIES,TOTAL Negative (Negative)
== END 2024-10-05 14:50 | disposition home or self-care (01) | DRG 640 ==
LOC: ER 14:21 → ERHOLD 16:42 → MEDS 16:42 → ERHOLD 16:42 → MEDS 20:13 → ENPENDDIS 10-05 11:06 → MEDS 10-05 14:50
PROVIDERS: Internal Medicine; Internal Medicine Nephrology; Student in an Organized Health Care Education/Training Program; ADMIT Family Medicine
PROC: 5A1D70Z Performance of Urinary Filtration, Intermittent, Less than 6 Hours Per Day (ICD-10-PCS; principal; 2024-10-02)
DX: E87.70 Fluid overload, unspecified (principal); N18.6 End stage renal disease; N25.81 Secondary hyperparathyroidism of renal origin; D63.1 Anemia in chronic kidney disease; R60.0 Localized edema; E87.1 Hypo-osmolality and hyponatremia; E83.39 Other disorders of phosphorus metabolism; Z79.82 Long term (current) use of aspirin; Z79.899 Other long term (current) drug therapy; Z95.2 Presence of prosthetic heart valve; Z87.891 Personal history of nicotine dependence
CPT/HCPCS: 36415; 36558; 76937; 77001; 80053; 80069; 83735; 85014; 85018; 85025; 85610; 85730; 86704; 86803; 87340; 93005; 93010; 96374; 96375; 97161; 97530; 99152; 99285-25; A9270; C1750; C1769; C1894; G0378; J0881; J1644; J2250; J3010; J7030; J7050; P9047